=== PATIENT | female | born 1950 | race Caucasian/White ===

== ENCOUNTER → 2017-07-16 | Outpatient (CLI) | payer MEDICARE, OTHER ==
[~2017-07-16] MED LIST: ADULT LOW DOSE81 MG PO; ALDACTONE25 MG PO; AMBIEN 10 MG TA10 MG; AMITRIPTYLINE H10 M1; ASPIRIN325 PO; BENTYL 10 MG CA10 M1 PO; BENTYL10 MG; BONIVA150 MG PO; CALCIUM; ELMIRON 100 MG100 M1 PO; FISH OIL 1,0001 EAC5; FISH OIL 1,001000 M2 PO; FLECAINIDE ACET50 M1 PO; FROVA2.5 MG; HYDROCODONE-AP1 EAC6 PO; MINIPRIN81 MG; NEURONTIN 300300 M1 PO; NEURONTIN300 MG PO; NORCO 5-325 TA1 EACH PO; NORTRIPTYLINE H10 M1 PO; OXYCODONE HCL 55 MG PO; RIZATRIPTAN10 MG PO; SORINE 80 MG TA80 M1 PO; SPIRONOLACTONE50 MG; TOPROL XL25 MG PO; ULTRAM 50MG TAB50 MG PO; UNICOMPLEX M TA1 TA1 PO; VITAMIN D; VITAMIN D1000 UNI1 PO; XARELTO10 MG PO; ZOFRAN4 MG PO; [UNRECOGNIZED DRUG - OTHER] PO
== END ==
LOC: M.RAD 12:52
DX: Z12.31 Encounter for screening mammogram for malignant neoplasm of breast (principal)

== ENCOUNTER → 2018-07-17 | Outpatient (CLI) | payer MEDICARE, OTHER | LOC: M.RAD 08:32 | DX: Z12.31 Encounter for screening mammogram for malignant neoplasm of breast (principal) ==

== ENCOUNTER → 2019-08-19 | Outpatient (CLI) | payer MEDICARE, OTHER | LOC: M.RAD 09:00 | DX: Z12.31 Encounter for screening mammogram for malignant neoplasm of breast (principal) ==

== ENCOUNTER → 2020-08-28 | Outpatient (CLI) | payer MEDICARE, OTHER | LOC: M.RAD 09:19 | PROVIDERS: ATTEND Internal Medicine Hematology & Oncology | DX: Z12.31 Encounter for screening mammogram for malignant neoplasm of breast (principal) ==